=== PATIENT | male | born 1945 | race Caucasian/White ===

== ENCOUNTER 2022-04-24 14:34 | Outpatient (CLI) | payer MEDICARE | END 2022-04-24 14:35 | disposition home or self-care (01) | LOC: CSHMRI 14:34 | PROVIDERS: ATTEND Neurological Surgery | DX: M47.12 Other spondylosis with myelopathy, cervical region (principal); M47.812 Spondylosis without myelopathy or radiculopathy, cervical region | CPT/HCPCS: 72141 ==

== ENCOUNTER 2022-05-21 13:25 | Outpatient (CLI) | payer MEDICARE ==
[~2022-05-21 13:25] MED LIST: Magnevist 469MG/ML 20 ML VIAL ONE
== END 2022-05-21 13:26 | disposition home or self-care (01) ==
LOC: CSHMRI 13:25
PROVIDERS: ATTEND Psychiatry & Neurology Neurology
DX: G95.9 Disease of spinal cord, unspecified (principal)
CPT/HCPCS: 72142; 82565